=== PATIENT | male | born 1960 | race Caucasian/White ===

== ENCOUNTER 2017-04-10 07:16 | Emergency (ER) | payer OTHER ==
[~2017-04-10] VITALS: Ht 188 cm; Wt 104.3 kg
[2017-04-10] MEDS ORDERED: NORCO 5-325 TA1 EACH PO (11:08)
[2017-04-10] MEDS ORDERED: LEVOFLOXACIN750 MG PO (11:08)
[2017-04-10] MEDS ORDERED: FLAGYL500 MG PO (11:08)
== END 2017-04-10 11:33 | disposition home or self-care (01) ==
LOC: ED 07:16
DX: K57.32 Diverticulitis of large intestine without perforation or abscess without bleeding (principal); D72.829 Elevated white blood cell count, unspecified
CPT/HCPCS: 74177; 80053; 81001; 83605; 83690; 85025; 96361; 96365; 96375; 99284; J1170; J1885; J1956; J2405; J7030; Q9967

== ENCOUNTER 2025-05-18 23:56 | Emergency (ER) | payer OTHER ==
[~2025-05-18 23:56] MED LIST: FLAGYL500 MG PO; LEVOFLOXACIN750 MG PO; NORCO 5-325 TA1 EACH PO
[2025-05-19] MEDS ORDERED: ASPIRIN 81 MG CHEW ONE (00:12)
[2025-05-19] MEDS ORDERED: NITROGLYCERIN 0.4 MG SUBL SL PRN (00:15)
[2025-05-19] MEDS ORDERED: ASPIRIN 81 MG CHEW PO ONE (00:15)
[2025-05-19 00:18] LABS: BASOPHILS 0.6 % (0.2-1.2); EOSINOPHILS 3.0 % (0.8-7.0); LYMPHOCYTES 18.5 % (21.8-53.1); MCH 32.7 PG (25.7-32.2); MCHC 34.5 g/dL (32.3-36.5); MCV 94.7 fL (79.0-92.2); MONOCYTES 11.6 % (5.3-12.2); NEUTROPHILS 66.0 % (34.0-67.9); RBC 4.50 M/uL (4.63-6.08)
[2025-05-19 00:30] LABS: ALT (SGPT) 31.0 U/L (14-59); AST (SGOT) 39.0 U/L (15-37); GLOMERULAR FILTRATION RATE,EST 98.0 mL/min (>60); PROTEIN, TOTAL 7.3 g/dL (6.4-8.2); UREA NITROGEN 22.0 mg/dL (7-18)
[2025-05-19] MEDS ORDERED: FAMOTIDINE 20 MG/ 2 ML VIAL IV ONE (00:45)
[2025-05-19] MEDS ORDERED: PRILOSEC OTC20 MG PO (01:48)
[2025-05-19 02:03] VITALS: BP 132/78
--- NOTE | 2025-05-20 21:55 | EKG ---
[facility] [address] [place] [address] Signed Sinus bradycardia with premature atrial complexes Otherwise normal ECG No previous ECGs available Confirmed by Zara Escudero MD () on 05/20/2025 9:55:32 PM Electronically Signed By: ZARA ESCUDERO MD 05/20/[id number] PATIENT NAME: THU CAVAZOS Electrocardiogram DATE OF : 64 PHYSICIAN: ZARA ESCUDERO MD REPORT #: [id number] REPORT IS CONFIDENTIAL AND NOT TO BE RELEASED WITHOUT AUTHORIZATION
== END 2025-05-19 02:04 | disposition home or self-care (01) ==
LOC: ED 23:56
PROVIDERS: Internal Medicine
DX: K21.9 Gastro-esophageal reflux disease without esophagitis (principal); Z79.899 Other long term (current) drug therapy
CPT/HCPCS: 36415; 71045; 80053; 83690; 83735; 84484; 85025; 93005; 93010; 96374; 99284-25; A9270